=== PATIENT | female | born 1990 | race Caucasian/White ===

== ENCOUNTER 2019-06-07 19:40 | Emergency (ER) | payer OTHER, SELFPAY ==
[2019-06-07 19:40] VITALS: BP 138/81; PULSE 87; RESP 14; TEMP 37.2; O2SAT 99; BMI 26.6
--- NOTE | 2019-06-07 20:12 | ED_ITS ---
HPI - Nausea/Vomiting/Diarrhea <SANDRA Valdes - Last Filed: 06/07/19 22:10> General Chief complaint: Nausea/Vomiting/Diarrhea Stated complaint: vomiting for 24 hours Time Seen by Provider: 06/07/19 19:47 Source: patient Mode of arrival: Ambulatory Limitations: no limitations History of Present Illness HPI Narrative: This is a 29-year-old female, nonsmoker, presents to ED with amina f complain of nausea and vomiting since last night 9:00 p.m.. Patient states she has been trying to hydrate in between vomit but had difficult time. Patient reports headache but denies abdominal pain. Initially patient had emesis with food particles which changed to bile like fluid. Patient reports some chills and no known fever before coming into ED and states she her temperature usually runs low. 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 They had sailed from [place] in 06/03/19 and [place] 8 days prior to this. Patient denies any crew members with signs of Covid-19 or similar symptoms and all crew members have been quarantined on the boat without traveling offshore. Patient feels some indigestion in her epigastric region but denies pain. Patient denies blood in her vomit or diarrhea. Last bowel movement was sometime yesterday which was normal for her. Patient denies urinary symptoms. LMP was 3 weeks ago and is not concerned for . Patient was given Zofran so far 4 doses and reports last vomit was 1-1/2 hour ago prior coming into ED and also taken Advil this morning. Related Data Previous Rx's Medication Instructions Recorded ondansetron 4 mg PO Q4H PRN #10 tab 06/07/19 Allergies Allergy/AdvReac Type Severity Reaction Status Date / Time No Known Drug Allergies Allergy Verified 06/07/19 19:50 Review of Systems <SANDRA Valdes - Last Filed: 06/07/19 22:10> Review of Systems Narrative: General: Denies fever, (+) chills, fatigue, malaise, sweats. HEENT: Denies sinus pain, ear pain, sore throat, difficulty swallowing, dizziness. Respiratory: Denies dyspnea, cough, wheezing, hemoptysis, sputum. Cardiovascular: Denies chest pain, palpitations, orthopnea, edema. Gastrointestinal: See HPI : Denies dysuria, frequency, incontinence, hematuria, urinary retention. Musculoskeletal: Denies weakness, joint pain or bony pain. Skin: Denies rash, skin lesions, or other. Neurologic: Denies weakness, headache, numbness, change in speech, confusion, seizures, incoordination. Psychiatric: No concerning psychosocial issues. 12-point review of systems is negative except for those stated above. Patient History <SANDRA Valdes - Last Filed: 06/07/19 22:10> Medical History No significant past medical history (Acute) Surgical History No pertinent past surgical history (Acute) Social History Smoking Status: Unknown if ever smoked Smoking Status: Unknown if ever smoked alcohol intake frequency: holidays/special occasions only Substance Use Type: does not use Exam <SANDRA Valdse - Last Filed: 06/07/19 22:10> Narrative Exam Narrative: GEN: Alert, oriented x 3, well appearing and nourished, and in no acute distress. Head: Normal cephalic, atraumatic. No scalp or temporal tenderness, palpable mass or rash. EYES: Pupils are equal, round, and reactive to light and accommodation. Extraocular muscles are intact bilaterally. There is no subconjunctival hemorrhage, exudate and sclera non-icteric. ENT: Bilateral auditory canals and tympanic membranes clear. Hearing grossly intact. Nose without bleeding, purulent discharge or deviation. Facial sinuses nontender to palpate. Mucous membrane moist, no mucosal lesion. Throat without erythema, tonsillar hypertrophy or exudate. Uvula in midline, airway patent. Neck: Trachea in midline. No JVD, non-tender without lymphadenopathy. No masses or thyroid megaly. Supple, non-tender and no meningeal signs. CARDIAC: Normal regular rate and rhythm without murmurs, gallops, or rubs. No chest wall tenderness. No peripheral edema, cyanosis or pallor. Capillary refill is less than 2 seconds. RESPIRATORY: Lungs are clear to auscultate bilaterally. No cough, wheezes, rales, or rhonchi. No stridor, respiratory distress, increase work of breathing, or accessary muscle used. ABD: Abdomen soft, nontender and non-distended. No guarding or rebound tenderness to palpate. Bowel sounds are normal in all 4 quadrants. There is no palpable masses or organomegaly. EXT: Full painless ROM of all extremities with no loss of sensation, strength, effusion or edema. SKIN: Warm, dry, normal color for patient. No erythema, lesions or rash over visible areas. BACK: Nontender without deformity or crepitance. No flank tenderness. NEUROLOGICAL: Alert and oriented to place, time and person. Sensation and motor function intact bilaterally. No facial droops, dysphasia. PSYCHIATRIC: Good judgement and reason, without hallucinations, abnormal affect or abnormal behaviors during the examination. Initial Vital Signs Initial Vital Signs: Vital Signs Temperature 99.0 F 06/07/19 19:40 Pulse Rate 87 06/07/19 19:40 Respiratory Rate 14 06/07/19 19:40 Blood Pressure 138/81 06/07/19 19:40 Pulse Oximetry 99 06/07/19 19:40 <Lonnie Rhodes MD - Last Filed: 06/08/19 02:10> Initial Vital Signs Initial Vital Signs: Vital Signs Temperature 99.0 F 06/07/19 19:40 Pulse Rate 87 06/07/19 19:40 Respiratory Rate 14 06/07/19 19:40 Blood Pressure 138/81 06/07/19 19:40 Pulse Oximetry 99 06/07/19 19:40 Scores <SANDRA Valdes - Last Filed: 06/07/19 22:10> GCS Henderson coma scale eye opening: Spontaneous Henderson coma scale verbal response: Orientated Henderson coma scale motor response: Obey commands Dania coma scale total score: 15 Course <SANDRA Valdes - Last Filed: 06/07/19 22:10> Orders Ordered: ED Orders 06/07/19 19:55 Complete Blood Count AUTO DIFF Stat Comprehensive Metabolic Panel Stat Lipase Stat 06/07/19 22:07 Urine Microscopic Stat Discontinued Medications Diphenhydramine HCl (Benadryl) 25 mg IV NOW ONE Stop: 06/07/19 21:17 Last Admin: 06/07/19 21:29 Dose: 25 mg Documented by: TAMIA Sodium Chloride (Normal Saline 0.9%) 1,000 mls @ 1,000 mls/hr IV BOLUS ONE Stop: 06/07/19 21:01 Last Infusion: 06/07/19 21:40 Dose: 0 mls/hr Documented by: Admin: 06/07/19 20:31 Dose: 1,000 mls/hr Documented by: RADHA Ketorolac Tromethamine (Toradol) 15 mg IV NOW ONE Stop: 06/07/19 21:17 Last Admin: 06/07/19 21:29 Dose: 15 mg Documented by: TAMIA Metoclopramide HCl (Reglan) 10 mg IV NOW ONE Stop: 06/07/19 21:17 Last Admin: 06/07/19 21:29 Dose: 10 mg Documented by: TAMIA Ondansetron HCl (Zofran) 4 mg IV NOW ONE Stop: 06/07/19 20:03 Last Admin: 06/07/19 20:30 Dose: 4 mg Documented by: RADHA Ondansetron HCl (Zofran Odt Prepack) 1 bottle MISC SEEINSTR ONE Stop: 06/07/19 21:52 Last Admin: 06/07/19 22:06 Dose: 1 bottle Documented by: RADHA Pantoprazole Sodium (Protonix) 40 mg IV NOW ONE Stop: 06/07/19 20:03 Last Admin: 06/07/19 20:30 Dose: 40 mg Documented by: RADHA Vital Signs Vital signs: Vital Signs - 8 hr 06/07/19 19:40 06/07/19 21:59 Temperature 99.0 F Pulse Rate 87 74 Respiratory Rate 14 14 Blood Pressure 138/81 129/80 Pulse Oximetry 99 99 <Lonnie Rhodes MD - Last Filed: 06/08/19 02:10> Orders Ordered: ED Orders 06/07/19 19:55 Complete Blood Count AUTO DIFF Stat Comprehensive Metabolic Panel Stat Lipase Stat 06/07/19 22:07 Urine Microscopic Stat Discontinued Medications Diphenhydramine HCl (Benadryl) 25 mg IV NOW ONE Stop: 06/07/19 21:17 Last Admin: 06/07/19 21:29 Dose: 25 mg Documented by: TAMIA Sodium Chloride (Normal Saline 0.9%) 1,000 mls @ 1,000 mls/hr IV BOLUS ONE Stop: 06/07/19 21:01 Last Infusion: 06/07/19 21:40 Dose: 0 mls/hr Documented by: Admin: 06/07/19 20:31 Dose: 1,000 mls/hr Documented by: RADHA Ketorolac Tromethamine (Toradol) 15 mg IV NOW ONE Stop: 06/07/19 21:17 Last Admin: 06/07/19 21:29 Dose: 15 mg Documented by: TAMIA Metoclopramide HCl (Reglan) 10 mg IV NOW ONE Stop: 06/07/19 21:17 Last Admin: 06/07/19 21:29 Dose: 10 mg Documented by: TAMIA Ondansetron HCl (Zofran) 4 mg IV NOW ONE Stop: 06/07/19 20:03 Last Admin: 06/07/19 20:30 Dose: 4 mg Documented by: RADHA Ondansetron HCl (Zofran Odt Prepack) 1 bottle MISC SEEINSTR ONE Stop: 06/07/19 21:52 Last Admin: 06/07/19 22:06 Dose: 1 bottle Documented by: RADHA Pantoprazole Sodium (Protonix) 40 mg IV NOW ONE Stop: 06/07/19 20:03 Last Admin: 06/07/19 20:30 Dose: 40 mg Documented by: RADHA Vital Signs Vital signs: Vital Signs - 8 hr 06/07/19 19:40 06/07/19 21:59 Temperature 99.0 F Pulse Rate 87 74 Respiratory Rate 14 14 Blood Pressure 138/81 129/80 Pulse Oximetry 99 99 MDM - Nausea/Vomiting/Diarrhea <Jimmy SANDRA Verma - Last Filed: 06/07/19 22:10> Differential Diagnosis Differential diagnosis: Likely gastroenteritis, dehydration and other (Gallstone, pancreatitis, ) Medical Records Attestation: I reviewed the patient's medical records. Lab Data Attestation: I reviewed the patient's lab results. Result diagrams: 06/07/19 19:55 06/07/19 19:55 Labs: Lab Results 06/07/19 06/07/19 06/07/19 Range/Units 19:55 19:55 22:07 WBC 6.3 (4.5-11.0) X10^3/uL RBC 4.59 (4.0-5.2) X10^6/uL Hgb 14.0 (12.0-16.0) g/dL Hct 41.5 (36-46) % MCV 90.5 (80-100) fL MCH 30.5 (26-34) PG MCHC 33.7 (30-36) % RDW 13.3 (11.6-14.8) % Plt Count 258 (150-400) X10^3/uL Neut % (Auto) 56.9 (50-75) % Lymph % (Auto) 32.0 (25-40) % [place] % (Auto) 8.7 (3-14) % Eos % (Auto) 2.0 (2-4) % Baso % (Auto) 0.4 (0-2) % Neut # (Auto) 3600 (9190-7140) /uL Lymph # (Auto) 2000 (6024-6894) /uL [place] # (Auto) 600 (0-900) /uL Eos # (Auto) 100 (0-450) /uL Baso # (Auto) 0 (0-100) /uL Sodium 139 (137-145) mmol/L Potassium 3.9 (3.4-5.1) mmol/L Chloride 108 H (98-107) mmol/L Carbon Dioxide 24 (22-32) mmol/L BUN 13 (7-17) mg/dL Creatinine 0.81 (0.52-1.04) mg/dL Estimated GFR > 60.0 (>60) mL/min BUN/Creatinine Ratio 16.0 (6-22) Glucose 94 (70-100) mg/dL Calcium 9.3 (8.4-10.2) mg/dL Total Bilirubin 0.8 (0.2-1.3) mg/dL AST 28 (14-36) IU/L ALT 16 (<35) IU/L Alkaline Phosphatase 41 (38-126) U/L Total Protein 7.3 (6.3-8.2) g/dL Albumin 4.0 (3.5-5.0) g/dL Globulin 3.3 (1.7-4.1) g/dL Albumin/Globulin Ratio 1.2 (1.0-2.8) Lipase 66 (23-300) U/L Urine RBC 0-1/hpf (0-5/HPF) Urine WBC None seen (0-5/HPF) Ur Squamous Epith Cells 5-10 /hpf H (0-5/HPF) Urine Bacteria Moderate (10-30) H (None) Ur Culture Indicated? Cult not indicated Point of Care Testing Test Results Negative Urine Dip Bedside Urine Glucose Negative Bedside Urine Bilirubin - Negative Bedside Urine Ketone ++ 40 Urine Specific [place] 1.015 Bedside Urine Occult Blood - Negative Bedside Urine pH 7.0 Bedside Urine Protein +/- 15 Bedside Urine Urobilinogen +/- 1mg Bedside Urine Nitrite - Negative Bedside Urine Leukocytes +/- 15 Esterase MDM Narrative Medical decision making narrative: This is a 29 year female who presents to ED with multiple times of vomiting and nausea without significant abdominal pain, headache. Patient reports of subjective chills and was not aware of fever before coming into ED. temperature in the ED was 99.0. Physical exam is benign. Vital signs within normal limits. Blood tests shows No leukocytosis, chemistry exams were unremarkable with normal lipase. Patient was medicated with Zofran and pantoprazole IV and was hydrated with normal saline IV fluid. When patient was re-evaluated patient states she still has nausea and headache. Patient was given additional medication of Reglan, Benadryl, Toradol for her symptoms. When patient was re-evaluated patient reports she was feeling much better. Urine test was negative for . There was positive for small amount of ketones, protein, urine bilinogen, and leukocytes esterase but without nitrite. Urine culture is pending and patient was informed that we will receive a phone call from ED if patient needs antibiotic medication treatment. 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 Patient denies anyone has Covid virus symptoms. She denies recent URI symptoms, sore throat, myalgia or diarrhea. Patient is discharged to home with prepack Zofran and prescription for nausea and vomiting as needed use. Return precaution was discussed with the patient and patient given jero karuna and advised to stick with clear liquid and advanced her diet to crackers and bland food. Return precaution was discussed with the patient and patient verbalized understanding and in agreement with treatment plan. Patient is okay to travel tomorrow as long as her symptoms improved. <Lonnie Rhodes MD - Last Filed: 06/08/19 02:10> Lab Data Labs: Lab Results 06/07/19 06/07/19 06/07/19 Range/Units 19:55 19:55 22:07 WBC 6.3 (4.5-11.0) X10^3/uL RBC 4.59 (4.0-5.2) X10^6/uL Hgb 14.0 (12.0-16.0) g/dL Hct 41.5 (36-46) % MCV 90.5 (80-100) fL MCH 30.5 (26-34) PG MCHC 33.7 (30-36) % RDW 13.3 (11.6-14.8) % Plt Count 258 (150-400) X10^3/uL Neut % (Auto) 56.9 (50-75) % Lymph % (Auto) 32.0 (25-40) % [place] % (Auto) 8.7 (3-14) % Eos % (Auto) 2.0 (2-4) % Baso % (Auto) 0.4 (0-2) % Neut # (Auto) 3600 (4163-7066) /uL Lymph # (Auto) 2000 (5866-5680) /uL [place] # (Auto) 600 (0-900) /uL Eos # (Auto) 100 (0-450) /uL Baso # (Auto) 0 (0-100) /uL Sodium 139 (137-145) mmol/L Potassium 3.9 (3.4-5.1) mmol/L Chloride 108 H (98-107) mmol/L Carbon Dioxide 24 (22-32) mmol/L BUN 13 (7-17) mg/dL Creatinine 0.81 (0.52-1.04) mg/dL Estimated GFR > 60.0 (>60) mL/min BUN/Creatinine Ratio 16.0 (6-22) Glucose 94 (70-100) mg/dL Calcium 9.3 (8.4-10.2) mg/dL Total Bilirubin 0.8 (0.2-1.3) mg/dL AST 28 (14-36) IU/L ALT 16 (<35) IU/L Alkaline Phosphatase 41 (38-126) U/L Total Protein 7.3 (6.3-8.2) g/dL Albumin 4.0 (3.5-5.0) g/dL Globulin 3.3 (1.7-4.1) g/dL Albumin/Globulin Ratio 1.2 (1.0-2.8) Lipase 66 (23-300) U/L Urine RBC 0-1/hpf (0-5/HPF) Urine WBC None seen (0-5/HPF) Ur Squamous Epith Cells 5-10 /hpf H (0-5/HPF) Urine Bacteria Moderate (10-30) H (None) Ur Culture Indicated? Cult not indicated Point of Care Testing Test Results Negative Urine Dip Bedside Urine Glucose Negative Bedside Urine Bilirubin - Negative Bedside Urine Ketone ++ 40 Urine Specific [place] 1.015 Bedside Urine Occult Blood - Negative Bedside Urine pH 7.0 Bedside Urine Protein +/- 15 Bedside Urine Urobilinogen +/- 1mg Bedside Urine Nitrite - Negative Bedside Urine Leukocytes +/- 15 Esterase Discharge Plan Departure Patient Disposition: Home Clinical Impression: Nausea & vomiting Qualifiers: Vomiting type: unspecified Vomiting Intractability: non-intractable Qualified Code(s): R11.2 - Nausea with vomiting, unspecified Discharge Date/Time: 06/07/19 21:59 Instructions: Nausea and Vomiting-Adult Activity Restrictions/Additional Instructions: You have been diagnosed with [nausea and vomiting. Lab tests were unremarkable. There is no increase in white count and electrolytes were within normal. There is no elevated lipase or liver function test. Your treated with IV Zofran, Reglan, toward our, Benadryl and fluid while in ED which improved her symptoms.]. What to do: *Take your medications as directed. You can take ondansetron/Zofran as needed for nausea and vomiting. Please hydrate herself with clear liquid small sips frequently. *Follow up with your primary care provider in 2-3 days, call for an appointment. Let them know you were seen in the ED and that we asked you to be seen in follow up. *Return to ED if you have any new, worsening, or concerning symptoms, such as [fever, abdominal pain, chest pain, breathing difficulty, signs of dehydration, or any acute concerns]. Prescriptions: New ondansetron 4 mg tablet,disintegrating 4 mg PO Q4H PRN (Reason: nausea and vomiting) Qty: 10 RF: 0
[2019-06-07] MEDS: ONDANSETRON 4 MG/2 ML INJ IV (20:30)
[2019-06-07] MEDS: PANTOPRAZOLE 40 MG VIAL IV (20:30)
[2019-06-07 20:31] LABS: Add Manual Diff / Slide Review NO; Basophils Absolute Auto 0 /uL (0-100); Basophils Percent Auto 0.4 % (0-2); Eosinophils Absolute Auto 100 /uL (0-450); Hematocrit 41.5 % (36-46); Lymphocytes Absolute Auto 2000 /uL (1100-4500); Mean Corpuscular HGB Conc 33.7 % (30-36); Mean Corpuscular Hemoglobin 30.5 PG (26-34); Mean Corpuscular Volume 90.5 fL (80-100); Monocytes Absolute Auto 600 /uL (0-900); Monocytes Percent Auto 8.7 % (3-14); Neutrophils Absolute Auto 3600 /uL (1500-7000); Neutrophils Percent Auto 56.9 % (50-75); Platelet Count 258 X10^3/uL (150-400); Red Blood Cell Count 4.59 X10^6/uL (4.0-5.2); Red Cell Distribution Width 13.3 % (11.6-14.8); White Blood Cell Count 6.3 X10^3/uL (4.5-11.0)
[2019-06-07] MEDS: SODIUM CHLORIDE 0.9% 1,000 ML 1000 ML IV (20:31)
[2019-06-07 20:44] LABS: Alanine Aminotransferase 16 IU/L (<35); Albumin Globulin Ratio 1.2 (1.0-2.8); Alkaline Phosphatase 41 U/L (38-126); Aspartate Aminotransferase 28 IU/L (14-36); Bilirubin Total 0.8 mg/dL (0.2-1.3); Blood Urea Nitrogen 13 mg/dL (7-17); Calcium 9.3 mg/dL (8.4-10.2); Carbon Dioxide 24 mmol/L (22-32); Chloride 108 mmol/L (98-107); Estimated Glomerular Filt Rate > 60.0 mL/min (>60); Globulin 3.3 g/dL (1.7-4.1); Glucose 94 mg/dL (70-100); HEMOLYSIS 25 (0-50); Lipase 66 U/L (23-300); Potassium 3.9 mmol/L (3.4-5.1); Sodium 139 mmol/L (137-145); Total Protein 7.3 g/dL (6.3-8.2)
[2019-06-07] MEDS: METOCLOPRAMIDE 10 MG/2 ML INJ IV (21:29)
[2019-06-07] MEDS: KETOROLAC 60 MG/2 ML VIAL 15 MG IV (21:29)
[2019-06-07] MEDS: diphenhydrAMINE 50 MG/ML VIAL 25 MG IV (21:29)
[2019-06-07 21:59] VITALS: BP 129/80; PULSE 74; RESP 14; O2SAT 99
[2019-06-07] MEDS: ONDANSETRON 4 MG ODT PREPACK 1 BOTTLE MISC (22:06)
[2019-06-07 22:09] LABS: WBC Urine None Seen (0-5/HPF)
[2019-06-07 22:21] LABS: Bacteria Urine Moderate (10-30); Culture Indicated Urine Cult Not Indicated; RBC Urine 0-1/HPF (0-5/HPF); Squamous Epithelial Cell Urine 5-10 /HPF (0-5/HPF)
== END 2019-06-07 21:59 | disposition home or self-care (01) ==
PROVIDERS: Emergency Provider Nurse Practitioner Family
DX: R11.2 Nausea with vomiting, unspecified (principal); R51 Headache; Y99.0 Civilian activity done for income or pay
CPT/HCPCS: 36415; 80053; 81003; 81015; 81025; 83690; 85025; 96361; 96374; 96375; 99284; C9113; J1200; J1885; J2405; J2765